=== PATIENT | male | born 1965 | race Caucasian/White ===

== ENCOUNTER 2020-10-20 16:56 | Emergency (ER) | payer BC ==
[~2020-10-20] VITALS: Ht 182.9 cm; Wt 95.3 kg
[~2020-10-20 16:56] MED LIST: METFORMIN PO; MULTIVITAMINS PO
[2020-10-20] MEDS ORDERED: ZYRTEC10 M2 PO (17:11)
[2020-10-20] MEDS ORDERED: KEFLEX500 M1 PO (17:41)
[2020-10-20 17:55] VITALS: BP 144/84
== END 2020-10-20 17:56 | disposition home or self-care (01) ==
LOC: M.ERS 16:56
DX: S61.012A Laceration without foreign body of left thumb without damage to nail, initial encounter (principal); F17.210 Nicotine dependence, cigarettes, uncomplicated; Z90.89 Acquired absence of other organs; Z79.899 Other long term (current) drug therapy; W26.8XXA Contact with other sharp object(s), not elsewhere classified, initial encounter; Y93.89 Activity, other specified; Y92.89 Other specified places as the place of occurrence of the external cause; Y99.8 Other external cause status